=== PATIENT | female | born 1990 | race Caucasian/White ===

== ENCOUNTER 2017-06-17 00:41 | Inpatient (IN) | payer MEDICAID ==
[2017-06-17] MEDS ORDERED: Acetaminophen 500 MG Tab PO ONE (00:57)
[2017-06-17] MEDS ORDERED: Lactated Ringers 1,000 ML IV ONE (00:59)
[2017-06-17] MEDS: Sodium Chloride 0.9% 10 ML Syringe FLUSH PRN ×2 (01:11→01:12)
--- NOTE | 2017-06-17 01:13 | EDM.PDOC ---
ED HPI GENERAL MEDICAL PROBLEM - General Chief Complaint: Fever Stated Complaint: BODY SHAKING Time Seen by Provider: 06/17/17 00:55 Source of Information: Reports: Patient History Limitations: Reports: No Limitations - History of Present Illness INITIAL COMMENTS - FREE TEXT/NARRATIVE: 26 yo female presents with a high fever via EMS. Has been ill since Friday. Had a last week in [place]. Just thought she had the flu initially. Took some ibuprofen earlier for her fever. Has no abdominal pain. Onset: Gradual Onset Date: 06/14/17 Duration: Day(s):, Getting Worse Location: Reports: Generalized Quality: Reports: Other (no pain.) Severity: Severe Improves with: Reports: Medication (ibuprofen seemed to be helping.) Worsens with: Reports: Other (time) Context: Reports: Other (Recent ) Associated Symptoms: Reports: Cough, Fever/Chills Treatments ACCESS DEVELOPER: Reports: NSAIDS Lower Abdomen Pain Score (Numeric/FACES): 10 - Related Data Allergies Allergy/AdvReac Type Severity Reaction Status Date / Time penicillin V Allergy Swelling Verified 06/17/17 01:03 Home Meds: Home Meds Ibuprofen [Motrin] 600 mg PO Q6H PRN 06/17/17 [History] Past Medical History Other HEENT History: eyelid surgery as a baby Cardiovascular History: Reports: Heart Murmur 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: , Other (See Below) Other OB/BYN History: ovarian cystectomy left Musculoskeletal History: Reports: Arthritis, Other (See Below) Other Musculoskeletal History: 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 Neurological History: Reports: Migraines Psychiatric History: Reports: ADHD, Addiction - Infectious Disease History Infectious Disease History: Reports: Chicken Pox - Past Surgical History HEENT Surgical History: Reports: Eye Surgery, Oral Surgery Respiratory Surgical History: Reports: None GI Surgical History: Reports: Appendectomy Social & Family History - Family History Family Medical History: Noncontributory Endocrine/Metabolic: Reports: Diabetes, type II - Tobacco Use Smoking Status *Q: Current Every Day Smoker Years of Tobacco use: 8 Packs/Tins Daily: 1 Used Tobacco, but Quit: No Second Hand Smoke Exposure: Yes - Caffeine Use Caffeine Use: Reports: Soda Other Caffeine Use: occas - Recreational Drug Use Recreational Drug Use: Yes Drug Use in Last 12 Months: No Recreational Drug Type: Reports: Methamphetamine Recreational Drug Use Frequency: Not Used In Over 6 Months ED ROS GENERAL - Review of Systems Review Of Systems: See Below Constitutional: Reports: Fever, Chills HEENT: Reports: No Symptoms Respiratory: Reports: Cough. Denies: Shortness of Breath, Sputum Cardiovascular: Reports: No Symptoms Endocrine: Reports: No Symptoms GI/Abdominal: Reports: No Symptoms : Reports: No Symptoms Musculoskeletal: Reports: No Symptoms Skin: Reports: No Symptoms, Other (No breast redness.) Neurological: Reports: Headache Psychiatric: Reports: No Symptoms ED EXAM, SEPSIS - Physical Exam Exam: See Below Exam Limited By: No Limitations General Appearance: Alert, WD/WN, No Apparent Distress Eye Exam: Bilateral Eye: Normal Inspection Ears: Normal External Exam, Normal Canal, Hearing Grossly Normal, Normal TMs Nose: Normal Inspection, Normal Mucosa, No Blood Throat/Mouth: Normal Inspection, Normal Lips, Normal Teeth, Normal Oropharynx, Normal Voice, No Airway Compromise Head: Atraumatic, Normocephalic Neck: Normal Inspection, Supple, Non-Tender, Full Range of Motion Respiratory/Chest: No Respiratory Distress, Lungs Clear, Normal Breath Sounds, No Accessory Muscle Use Cardiovascular: Regular Rate, Rhythm, No Edema GI/Abdominal: Normal Bowel Sounds, Soft, Non-Tender, No Distention, Other (C- section scar is not red.) Back: Normal Inspection. No: CVA Tenderness (R), CVA Tenderness (L) Extremities: Normal Inspection, Normal Range of Motion, Non-Tender, No Pedal Edema Neurological: Alert, Oriented, CN II-XII Intact, Normal Cognition, No Motor/ Sensory Deficits Psychiatric: Normal Affect, Normal Mood Skin: Warm, Dry, Intact, Normal Color, No Rash, Other (Breasts not red.) Lymphatic: Bilateral: No Adenopathy Course - Vital Signs Text/Narrative:: LR 1000 ml IV, acetaminophen 1000 mg po, NS 1000 ml IV, Rocephin 1 gm IV Orthostats-positive Last Recorded V/S: Last Vital Signs Temp 39.1 C H 06/17/17 02:49 Pulse 135 H 06/17/17 01:00 Resp 32 H 06/17/17 01:00 BP 87/73 L 06/17/17 01:00 Pulse Ox 100 06/17/17 01:00 - Orders/Labs/Meds Orders: Active Orders 24 hr Category Date Time Status Orthostatic Vital Signs [RC] ASDIRECTED Care 06/17/17 03:29 Active CULTURE BLOOD [BC] Stat Lab 06/17/17 01:05 Received CULTURE BLOOD [BC] Urgent Lab 06/17/17 01:15 Received CULTURE URINE [RM] Stat Lab 06/17/17 01:52 Ordered Sodium Chloride 0.9% [Saline Flush] Med 06/17/17 01:11 Active 10 ml FLUSH ASDIRECTED PRN Blood Culture x2 Reflex Set [OM.PC] Urgent Oth 06/17/17 00:58 Ordered Saline Lock Insert [OM.PC] Routine Oth 06/17/17 01:11 Ordered Medication Orders Sodium Chloride (Saline Flush) 10 ml FLUSH ASDIRECTED PRN PRN Reason: Keep Vein Open Last Admin: 06/17/17 01:12 Dose: 10 ml Admin: 06/17/17 01:11 Dose: 10 ml Labs: Laboratory Tests 06/17/17 06/17/17 06/17/17 Range/Units 01:05 01:05 01:05 WBC 12.9 H (4.5-12.0) X10-3/uL RBC 4.32 (3.23-5.20) x10(6)uL Hgb 10.2 L (11.5-15.5) g/dL Hct 31.8 (30.0-51.3) % MCV 73.5 L (80-96) fL MCH 23.6 L (27.7-33.6) pg MCHC 32.1 L (32.2-35.4) g/dL RDW 22.3 H (11.5-15.5) % Plt Count 476 H (125-369) X10(3)uL Sodium 136 (135-145) mmol/L Potassium 3.7 (3.5-5.3) mmol/L Chloride 107 (100-110) mmol/L Carbon Dioxide 19 L (23-29) mmol/L BUN 15 D (5-20) mg/dL Creatinine 0.7 (0.6-1.3) mg/dL Est Cr Clr Drug Dosing 109.59 mL/min Estimated GFR (MDRD) > 60 (>60) BUN/Creatinine Ratio 21.4 H (9-20) Glucose 105 (80-116) mg/dL Lactic Acid 1.8 (0.5-2.2) mmol/L Calcium 8.4 L (8.6-10.2) mg/dL Urine Color (YELLOW) Urine Appearance (CLEAR) Urine pH (5.0-6.5) Ur Specific [place] (1.010-1.025) Urine Protein (NEGATIVE) mg/dL Urine Glucose (UA) (NEGATIVE) mg/dL Urine Ketones (NEGATIVE) mg/dL Urine Occult Blood (NEGATIVE) Urine Nitrite (NEGATIVE) Urine Bilirubin (NEGATIVE) Urine Urobilinogen (NEGATIVE) mg/dL Ur Leukocyte Esterase (NEGATIVE) Urine RBC (0) Urine WBC (0) Ur Squamous Epith Cells (NS,R,O) Urine Bacteria (NS) Urine Yeast (NS) Urine Opiates Screen (NEGATIVE) Ur Oxycodone Screen (NEGATIVE) Ur Propoxyphene Screen (NEGATIVE) Ur Barbituates Screen (NEGATIVE) Ur Tricyclics Screen (NEGATIVE) Ur Phencyclidine Scrn (NEGATIVE) Ur Amphetamine Screen (NEGATIVE) Urine MDMA Screen (NEGATIVE) U Benzodiazepines Scrn (NEGATIVE) U Cocaine Metab Screen (NEGATIVE) U Marijuana (THC) Screen (NEGATIVE) 06/17/17 06/17/17 Range/Units 01:35 01:35 WBC (4.5-12.0) X10-3/uL RBC (3.23-5.20) x10(6)uL Hgb (11.5-15.5) g/dL Hct (30.0-51.3) % MCV (80-96) fL MCH (27.7-33.6) pg MCHC (32.2-35.4) g/dL RDW (11.5-15.5) % Plt Count (125-369) X10(3)uL Sodium (135-145) mmol/L Potassium (3.5-5.3) mmol/L Chloride (100-110) mmol/L Carbon Dioxide (23-29) mmol/L BUN (5-20) mg/dL Creatinine (0.6-1.3) mg/dL Est Cr Clr Drug Dosing mL/min Estimated GFR (MDRD) (>60) BUN/Creatinine Ratio (9-20) Glucose (80-116) mg/dL Lactic Acid (0.5-2.2) mmol/L Calcium (8.6-10.2) mg/dL Urine Color [place] (YELLOW) Urine Appearance Cloudy (CLEAR) Urine pH 5.0 (5.0-6.5) Ur Specific [place] 1.020 (1.010-1.025) Urine Protein 100 H (NEGATIVE) mg/dL Urine Glucose (UA) Normal (NEGATIVE) mg/dL Urine Ketones Negative (NEGATIVE) mg/dL Urine Occult Blood Large H (NEGATIVE) Urine Nitrite Negative (NEGATIVE) Urine Bilirubin Negative (NEGATIVE) Urine Urobilinogen 1 H (NEGATIVE) mg/dL Ur Leukocyte Esterase Large H (NEGATIVE) Urine RBC 10-20 H (0) Urine WBC 30-40 H (0) Ur Squamous Epith Cells Few H (NS,R,O) Urine Bacteria Moderate H (NS) Urine Yeast Few H (NS) Urine Opiates Screen Negative (NEGATIVE) Ur Oxycodone Screen Positive H (NEGATIVE) Ur Propoxyphene Screen Negative (NEGATIVE) Ur Barbituates Screen Negative (NEGATIVE) Ur Tricyclics Screen Negative (NEGATIVE) Ur Phencyclidine Scrn Negative (NEGATIVE) Ur Amphetamine Screen Negative (NEGATIVE) Urine MDMA Screen Negative (NEGATIVE) U Benzodiazepines Scrn Negative (NEGATIVE) U Cocaine Metab Screen Negative (NEGATIVE) U Marijuana (THC) Screen Negative (NEGATIVE) Meds: Medications Generic Name Dose Route Start Last Admin Trade Name Freq PRN Reason Stop Dose Admin Sodium Chloride 10 ml 06/17/17 01:11 06/17/17 01:12 Saline Flush FLUSH 10 ml ASDIRECTED PRN Administration Keep Vein Open Discontinued Medications Generic Name Dose Route Start Last Admin Trade Name Freq PRN Reason Stop Dose Admin Acetaminophen 1,000 mg 06/17/17 00:57 06/17/17 01:06 Tylenol Extra Strength PO 06/17/17 00:58 1,000 mg ONETIME ONE Administration Lactated Ringer's 1,000 mls @ 1,000 mls/hr 06/17/17 00:59 06/17/17 01:08 Ringers, Lactated IV 06/17/17 01:58 1,000 mls/hr BOLUS ONE Administration Sodium Chloride 1,000 mls @ 1,000 mls/hr 06/17/17 01:46 06/17/17 02:11 Normal Saline IV 06/17/17 02:45 1,000 mls/hr .BOLUS ONE Administration Ceftriaxone Sodium 1,000 mg/ 50 mls @ 100 mls/hr 06/17/17 01:54 06/17/17 02: 13 Sodium Chloride IV 06/17/17 02:23 100 mls/hr ONETIME ONE Administration Departure - Departure Time of Disposition: 03:35 Disposition: Refer to Observation Condition: Fair Clinical Impression: Orthostatic hypotension UTI (urinary tract infection) Qualifiers: Urinary tract infection type: acute pyelonephritis Qualified Code(s): N10 - Acute pyelonephritis Clinical Impression: (Ruled Out): Fever - Discharge Information - My Orders Last 24 Hours: My Active Orders 06/17/17 00:58 Blood Culture x2 Reflex Set [OM.PC] Urgent 06/17/17 01:05 CULTURE BLOOD [BC] Stat 06/17/17 01:11 Sodium Chloride 0.9% [Saline Flush] 10 ml FLUSH ASDIRECTED PRN Saline Lock Insert [OM.PC] Routine 06/17/17 01:15 CULTURE BLOOD [BC] Urgent 06/17/17 01:52 CULTURE URINE [RM] Stat 06/17/17 03:29 Orthostatic Vital Signs [RC] ASDIRECTED - Assessment/Plan Last 24 Hours: My Active Orders 06/17/17 00:58 Blood Culture x2 Reflex Set [OM.PC] Urgent 06/17/17 01:05 CULTURE BLOOD [BC] Stat 06/17/17 01:11 Sodium Chloride 0.9% [Saline Flush] 10 ml FLUSH ASDIRECTED PRN Saline Lock Insert [OM.PC] Routine 06/17/17 01:15 CULTURE BLOOD [BC] Urgent 06/17/17 01:52 CULTURE URINE [RM] Stat 06/17/17 03:29 Orthostatic Vital Signs [RC] ASDIRECTED
[2017-06-17] MEDS ORDERED: Sodium Chloride 0.9% 1,000 ML IV ONE (01:46)
[2017-06-17] MEDS ORDERED: cefTRIAXone 1,000 MG in Sodium Chloride 0.9% 50 ML IV ONE (01:54)
[2017-06-17] MEDS ORDERED: Ondansetron 4 MG Tab.DIS PO PRN (03:37)
[2017-06-17] MEDS ORDERED: Docusate Sodium 100 MG Cap PO PRN (03:37)
[2017-06-17] MEDS: Sodium Chloride 0.9% 1,000 ML IV SCH ×3 (04:25→20:41)
[2017-06-17] MEDS: Acetaminophen 325 MG Tab PO PRN ×2 (06:05→12:53)
--- NOTE | 2017-06-17 08:48 | PCM.HP ---
H&P History of Present Illness - General Date of Service: 06/17/17 Admit Problem/Dx: Admission Diagnosis/Problem Admission Diagnosis/Problem Urinary tract infection Source of Information: Patient, Old Records - History of Present Illness Initial Comments - Free Text/Narative: 26-year-old female came in for fever generally less weakness and dizziness yesterday. Symptoms started yesterday, been well previously she had a on the 8th for non-reassuring status. She developed pain in the left lower quadrant yesterday which complains is,sharp, about 5 out of 10 with no radiation.Percocet helps. She has no urinary symptoms but has a mild cough. Her fever is temperature was 3 yesterday when she came. She has a history of heart murmur, but has otherwise been healthy and was an OB patient of [facility] until she can out of town last week. 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: , Other (See Below) Other OB/BYN History: ovarian cystectomy left Musculoskeletal History: Reports: Arthritis, Other (See Below) Other Musculoskeletal History: 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 Neurological History: Reports: Migraines Psychiatric History: Reports: ADHD, Addiction - Infectious Disease History Infectious Disease History: Reports: Chicken Pox - Past Surgical History HEENT Surgical History: Reports: Eye Surgery, Oral Surgery Respiratory Surgical History: Reports: None GI Surgical History: Reports: Appendectomy Social & Family History - Family History Family Medical History: Noncontributory Endocrine/Metabolic: Reports: Diabetes, type II - Tobacco Use Smoking Status *Q: Current Every Day Smoker Years of Tobacco use: 10 Packs/Tins Daily: 0.5 Used Tobacco, but Quit: No Second Hand Smoke Exposure: Yes - Caffeine Use Caffeine Use: Reports: Soda Other Caffeine Use: occas - Recreational Drug Use Recreational Drug Use: No Drug Use in Last 12 Months: No Recreational Drug Type: Reports: Methamphetamine Recreational Drug Use Frequency: Not Used In Over 6 Months H&P Review of Systems - Review of Systems: Review Of Systems: ROS reveals no pertinent complaints other than HPI. Exam - Exam Exam: See Below - Vital Signs Vital Signs: Last Vital Signs Temp 98.6 F 06/17/17 03:37 Pulse 98 06/17/17 03:37 Resp 18 06/17/17 03:37 BP 114/70 06/17/17 03:37 Pulse Ox 95 06/17/17 03:37 Weight: 66.814 kg - Exam General: Alert, Oriented, 4 HEENT: PERRLA, Hearing Intact, Mucosa Moist & [place], Nares Patent, Normal Nasal Septum, Posterior Pharynx Clear, Conjunctiva Clear, EOMI, EACs Clear, TMs Clear Neck: Supple, Trachea Midline, 2 Lungs: Clear to Auscultation, Normal Respiratory Effort Cardiovascular: Systolic Murmur Abdomen: Soft, Pelvis Stable, Tenderness (LLQ), Other (Wound is dry,intact) (Female) Exam: Deferred. No: Vaginal Discharge Rectal (Female) Exam: Deferred Back Exam: Normal Inspection, Full Range of Motion, NT Extremities: 3, Normal Inspection, 10 Skin: Warm, Dry, Intact Neurological: Cranial Nerves Intact, Reflexes Equal Bilateral Neuro Extensive - Mental Status: Alert, Oriented x3, Normal Mood/Affect, Normal Cognition Neuro Extensive - Motor, Sensory, Reflexes: CN II-XII Intact, Normal Gait, Normal Reflexes Psychiatric: Alert, Normal Affect, Normal Mood - Patient Data Lab Results Last 24 hrs: Laboratory Results - last 24 hr 06/17/17 Range/Units 05:55 WBC 20.4 H (4.5-12.0) X10-3/uL RBC 4.09 (3.23-5.20) x10(6)uL Hgb 9.5 L (11.5-15.5) g/dL Hct 30.2 (30.0-51.3) % MCV 73.8 L (80-96) fL MCH 23.3 L (27.7-33.6) pg MCHC 31.5 L (32.2-35.4) g/dL RDW 22.4 H (11.5-15.5) % Plt Count 449 H (125-369) X10(3)uL Result Diagrams: 06/17/17 05:55 06/17/17 01:05 *Q Meaningful Use (ADM) - VTE *Q VTE Criteria *Q: - Stroke *Q Stroke Criteria *Q: - AMI *Q AMI Criteria *Q: - Problem List (1) S/P section SNOMED Code(s): 758148099, 501287461 ICD Code: Z98.891 - HISTORY OF UTERINE SCAR FROM PREVIOUS SURGERY Status: Acute Current Visit: Yes (2) LLQ abdominal pain SNOMED Code(s): 698234911 ICD Code: R10.32 - LEFT LOWER QUADRANT PAIN Status: Acute Current Visit: Yes (3) Anemia affecting SNOMED Code(s): 74875210 ICD Code: O99.019 - ANEMIA COMPLICATING , UNSPECIFIED TRIMESTER Status: Acute Current Visit: No Problem Details: Also secondary to blood loss Stable hgb-will start FERROUS supplementation (4) UTI (urinary tract infection) SNOMED Code(s): 90363761 ICD Code: N39.0 - URINARY TRACT INFECTION, SITE NOT SPECIFIED Status: Acute Current Visit: Yes Qualifiers: Urinary tract infection type: acute pyelonephritis Qualified Code(s): N10 - Acute pyelonephritis Problem List Initiated/Reviewed/Updated: Yes Orders Last 24hrs: Active Orders 24 hr Category Date Time Status Sodium Chloride 0.9% [Normal Saline] 1,000 ml Med 06/17/17 03:45 Active IV ASDIRECTED Medication Orders Acetaminophen (Tylenol) 650 mg PO Q4H PRN PRN Reason: Pain (Mild 1-3)/fever Last Admin: 06/17/17 06:05 Dose: 650 mg Docusate Sodium (Colace) 100 mg PO BID PRN PRN Reason: Constipation Sodium Chloride (Normal Saline) 1,000 mls @ 150 mls/hr IV ASDIRECTED JASMINA Last Admin: 06/17/17 04:25 Dose: 150 mls/hr Ibuprofen (Motrin) 400 mg PO Q6H PRN PRN Reason: Pain (mild 1-3) Ondansetron HCl (Zofran Odt) 4 mg PO Q6H PRN PRN Reason: nausea, able to take PO Sodium Chloride (Saline Flush) 10 ml FLUSH ASDIRECTED PRN PRN Reason: Keep Vein Open Last Admin: 06/17/17 01:12 Dose: 10 ml Admin: 06/17/17 01:11 Dose: 10 ml Assessment/Plan Comment:: Because of the fever still unclear but it is possible his from the urinary tract. The cause of the left lower quadrant abdominal pain is also not clear. I will go ahead and get an ultrasound. I'm starting Levaquin 500 mg daily. And also get a chest x-ray,repeat a CBC and basic profile in the morning.We'll continue with pain control and discontinue telemetry. I have asked for the previous record specifically a delivery at [facility],sent to us so we can review it.
[2017-06-17] MEDS: Levofloxacin/Dextrose 5%-Water 500 MG in Premix Bag 1 BAG IV SCH (11:44)
[2017-06-17] MEDS ORDERED: Ketorolac 30 MG/ML SDV IVPUSH PRN (17:13)
[2017-06-17] MEDS ORDERED: metroNIDAZOLE/Normal Saline 100 ML ONE (18:40)
[2017-06-17] MEDS: metroNIDAZOLE/Normal Saline 500 MG in Premix Bag 1 BAG IV SCH (18:43)
[2017-06-18] MEDS: metroNIDAZOLE/Normal Saline 500 MG in Premix Bag 1 BAG IV SCH ×3 (03:02→17:36)
[2017-06-18] MEDS: Sodium Chloride 0.9% 1,000 ML IV SCH ×2 (05:19→14:03)
[2017-06-18] MEDS: Ibuprofen 400 MG Tab PO PRN (07:56)
[2017-06-18] MEDS: Levofloxacin/Dextrose 5%-Water 500 MG in Premix Bag 1 BAG IV SCH (10:26)
[2017-06-18] MEDS ORDERED: Iopamidol 755 Mg/ML 100 ML Bottle IV SCH (15:00)
[2017-06-19] MEDS: metroNIDAZOLE/Normal Saline 500 MG in Premix Bag 1 BAG IV SCH ×2 (01:31→08:44)
[2017-06-19] MEDS: Ibuprofen 400 MG Tab PO PRN (08:44)
[2017-06-19] MEDS: Sodium Chloride 0.9% 10 ML Syringe FLUSH PRN (08:44)
[2017-06-19 08:55] VITALS: BP 115/77
--- NOTE | 2017-06-19 09:54 | PN ---
DATE SEEN: 06/18/2017 CHIEF COMPLAINT: 1. Headache. 2. Abdominal pain. HISTORY OF PRESENT ILLNESS: A 26-year-old female, admitted 2 days ago with pelvic pain, possible UTI, possible endometritis. She still has minimal pain left lower quadrant, mild headache, but overall seems better than she was. No more fever. REVIEW OF SYSTEMS: No chest pain. No shortness of breath. No leg swelling. No lochia or foul smelling discharge vaginally. ALLERGIES: Penicillin. PHYSICAL EXAMINATION: GENERAL: She is not in distress. Blood pressure is normal. She is afebrile. ABDOMEN: Soft and nontender. The incision is intact. CARDIOVASCULAR: Normal. RESPIRATIONS: Clear. ENT: Negative. EYES: EPI. LABS: Normal white cell count. IMPRESSION: 1. Left lower quadrant abdominal pain. 2. Urinary tract infection. 3. Headache, possibly spinal. PLAN: I ordered a CT scan based on the ultrasound from yesterday. Regarding the CT-scan, I spoke with the radiologist who thought there could be a dehiscence of the scar and possibly endometritis. I called [place], spoke to Gynecology, I attempted [place], but was not able to get the surgeon who did the . The patient is clinically improving, including white cell count and pain, and I am not sure if there is anything more we could do. Continue at this time with [facility], but will be waiting for the telephone call from Gynecology in [place] once they review the images. /[id number] JARRED/SONY
--- NOTE | 2017-06-19 09:55 | PN ---
DATE SEEN: 06/19/2017 REASON FOR VISIT: Abdominal pain. HISTORY OF PRESENT ILLNESS: This is a 26-year-old female, who came in with left lower quadrant abdominal pain. Overnight, she feels better, has no more pain. Denies any headache. No fever. No vaginal drainage or discharge. REVIEW OF SYSTEMS: All other systems negative. SOCIAL HISTORY: Smoker. PHYSICAL EXAMINATION: VITAL SIGNS: Blood pressure is normal. She is afebrile. ENT: Negative. HEAD: Normal size. NECK: Supple. CHEST: Clear. ABDOMEN: Soft and benign. SKIN: Incision is intact. LABORATORY DATA: No growth in the blood draw and urine culture is unremarkable, mixed susanna. CT report, please see the electronic record. IMPRESSION: 1. Left lower quadrant abdominal pain. 2. Urinary tract infection. 3. Suspected endometritis. PLAN: Discharge home today. No more antibiotics. The patient is clinically better. I advised to follow up next week with myself on Friday. /[id number] JARRED/SONY
[2017-06-19] MEDS: Levofloxacin/Dextrose 5%-Water 500 MG in Premix Bag 1 BAG IV SCH (10:25)
--- NOTE | 2017-06-20 08:10 | DISCH ---
DISCHARGE DATE: 06/19/2017 REASON FOR ADMISSION: 1. Urinary tract infection. 2. Anemia. 3. Left lower quadrant abdominal pain. 4. Status post section. CONSULTATIONS: [employer], [place]. PROCEDURES: Ultrasound, CT scan of abdomen and pelvis. BRIEF HISTORY: A 26-year-old female came in because of abdominal pain, fever and headache, had urine that was dirty, treated initially with Rocephin and then Levaquin and Flagyl. Her symptoms improved. An ultrasound initially suspected possible abscess, but a CT report did not show any significant abscess but suspicion of endometritis was entertained. I spoke with the Coffee Roaster Helper Dr. North at [facility] and after review of the CT scan and the clinical findings of the patient suggested that we could discharge the patient home. She was almost 100% better. Her headache was gone, fever was gone, white cell count was 7 and abdominal exam was benign. I discharged her home on her current home medications with no antibiotics with a plan for followup on Friday or Friday. /[id number] JARRED/SONY
--- NOTE | 2017-06-24 11:29 | CR ---
INDICATION: Cough. CHEST, PA AND LATERAL: No infiltrates, effusions, or masses. The heart and mediastinal structures are normal. Nothing to suggest acute or significant chronic pathology. MTDD
== END 2017-06-19 13:27 | disposition home or self-care (01) | DRG 776 ==
LOC: FB.ED 00:41 → FB.MS 03:37 → OBSVTOIN 17:13
PROVIDERS: ADMIT Emergency Medicine; ATTEND Family Medicine
DX: O86.20 Urinary tract infection following delivery, unspecified (principal); R10.32 Left lower quadrant pain; F17.210 Nicotine dependence, cigarettes, uncomplicated; O99.03 Anemia complicating the puerperium; D64.9 Anemia, unspecified; R51 Headache
CPT/HCPCS: 36415; 71020; 74177; 76856; 80048; 80305; 81001; 83605; 85025; 85027; 87040; 87086; 96361; 96365; 99285; A9270-GY; J0696; J1885; J1956; J7040; J7050; J7120; Q9967

== ENCOUNTER 2017-07-17 06:41 | Emergency (ER) | payer MEDICAID ==
[2017-07-17 07:21] VITALS: BP 113/61
[2017-07-17] MEDS ORDERED: diphenhydrAMINE 50 MG/ML SDV IVPUSH ONE (07:36)
[2017-07-17] MEDS ORDERED: Ketorolac 30 MG/ML SDV IVPUSH ONE (07:36)
[2017-07-17] MEDS ORDERED: Sodium Chloride 0.9% 1,000 ML IV SCH (07:45)
[2017-07-17] MEDS ORDERED: Iopamidol 755 Mg/ML 100 ML Bottle IV ONE (08:14)
[2017-07-17] MEDS ORDERED: HYDROmorphone 2 MG/ML SDV IVPUSH ONE (09:34)
[2017-07-17] MEDS ORDERED: Ondansetron 4 MG/2 ML SDV IVPUSH ONE (09:35)
--- NOTE | 2017-07-17 12:44 | US ---
INDICATION: One month post , pain increased, extending to right, suggestion of enlarged ovary on CT scan of the same date. PELVIC ULTRASOUND, NON-OB, LIMITED: Multiple ultrasonic images were obtained with transabdominal probe and revealed the uterus to measure 11.5 x 4 x 7 cm. The large bulky uterus is likely on the basis of recent one month ago. No definite uterine mass is identified. Free fluid is noted in the pelvis, which may be physiologic, but should be correlated clinically and may be on the basis of the previous or an inflammatory process, such as peritonitis. This should be correlated clinically. The ovaries appear grossly normal with follicles but are not well seen, especially the left. Endovaginal probe ultrasound will be necessary for further evaluation. No adnexal mass lesions were identified. IMPRESSION: 1. Free fluid of questionable etiology. Cannot exclude peritonitis. The possibility of physiologic cyst fluid would be a lesser consideration. 2. Large bulky uterus compatible with recent gestation. 3. Ovaries not ideally visualized, need endovaginal probe for further evaluation. INDICATION: One month post , pain increased, extending to right, suggestion of enlarged ovary on CT scan of the same date - need better visualization of the ovaries than was possible with the transabdominal probe. TRANSVAGINAL PELVIC ULTRASOUND: Utilizing transvaginal probe, multiple ultrasonic images revealed the endometrial cavity echo to be normal for at approximately 5.8 mm. The uterus also appeared normal for . Free fluid is noted of questionable etiology, cannot exclude peritonitis versus physiologic cyst fluid. It does appear to be simple fluid, however. The ovaries appear to be normal, measuring approximately 4.4 x 3.7 x 1.7 cm on the right and 4.3 x 4.1 x 1.2 cm on the left with follicles present. Fluid is present around the right ovary more prominently than on the left, but there is fluid at the left ovary also noted. No adnexal mass lesions were identified. IMPRESSION: Essentially normal pelvic ultrasound; however, fluid in the pelvis may be of concern, and followup studies and clinically correlation are recommended. MTDD
[2017-07-17] MEDS ORDERED: cefTRIAXone 250 MG Vial IM ONE (12:47)
[2017-07-17] MEDS ORDERED: Azithromycin 500 MG Tab PO ONE (12:48)
--- NOTE | 2017-07-18 09:09 | ER ---
DATE SEEN: 07/17/2017 This 26-year-old 5, para 5-0-0-5, who comes in because she has lower abdominal discomfort and severe abdominal pain greater than 10/10 last night. She is status post June 07 with complication postoperatively, which today, on the basis of the examination, seems to be endomyometritis. On 06/18/2017 to 06/19/2017, she was treated and hospitalized for possible pyelonephritis and no growth noted on the blood cultures and UC read as negative with contamination. She had stayed overnight and felt better the following day on 06/19/2017. She was sent home on antibiotics. The patient to follow up in a week. She had a pelvic ultrasound performed and also abdominal CT performed 06/18 and 06/17, and uterus is enlarged consistent with state. There is some fluid in endocervical canal. There is some concern postop abscess in right lower quadrant. No CT was performed to verify status of possible abscess (hypoechoic mass). Dr. Sanches discussed with Dr. North at [facility]. Discharged on Levaquin and Flagyl. She denies vomiting or fever. Denies diarrhea, constipation, blood in her stool, black tarry stool, frequency, urgency, dysuria nor she does have vaginal discharge. No previous STD studies have been performed. REVIEW OF SYSTEMS: HEENT: Negative. She has had poor dentition. CARDIORESPIRATORY: Negative. No shortness of breath or cough. No tenderness of lower extremities. GASTROINTESTINAL: As noted above without diarrhea. She has had run out of her pain medicine yesterday. She has slight nausea, pain has increased, and vomited once last night. GENITOURINARY: Notes it hurts to pass urine but she denies dysuria. SOCIAL HISTORY: Smokes half a pack per day. Denies alcohol or drug use. Three children live with her father and 2 children live in foster care. This is Suggestive of moderate dysfunctional social skills. PHYSICAL EXAMINATION: VITAL SIGNS: Blood pressure 113/61, heart rate 79, respirations 18, oxygen saturation 98%, and temperature is 36.9 degrees centigrade. GENERAL: The patient has mild discomfort, is not overweight. She is accompanied by another male, who is markedly overweight, significant other. HEENT: PERRLA intact. Pharynx without abnormality. Mucosa slightly dry. No cervical adenopathy. No thyromegaly. LUNGS: Clear to auscultation without rales, rhonchi, or wheezes. HEART: S1, S2. No murmur. ABDOMEN: Soft. No guarding. No abdominal discomfort. DIAGNOSTIC STUDIES: In left abdomen, there is mild stool in the colon, mild dilation of right renal pelvis, and right internal collecting systems possibly related to previously obstructive minimally prominent system. Mild soft tissue stranding, fluid in the pelvis anteriorly and posteriorly. New low density prominence right adnexal region, prominence right ovary oval shaped lesion, right ovary. This is considered to be 5.7 cm. Mild inflammatory or edematous stranding anterior lower pelvic wall with fairly stable consistent with prior C- section, increased number of small mildly prominent lower pelvis, external iliac, and pelvic sidewall lymph nodes. There is concern about presence of tampon in the vagina. Pelvic exam was performed. No evidence for tampon was noted. Also ultrasound performed this morning after the CT was completed and demonstrated free fluid, the etiology cannot exclude peritonitis, possible physiological cyst could be consideration but there is no evidence for mass in the right ovary. Large bulky uterus is compatible with recent gestation but is probably larger than anticipated. Ovaries not ideally visualized. Transvaginal ultrasound: Ovaries appear normal 4.4 x 3.7 x 1.7 on the right and 4.3 x 4.1 x 1.2 on the left with follicles present. Fluid around the ovaries more prominent in the left, but there is also fluid in left ovary. There are no adnexal masses. Normal pelvic ultrasound. Noted the uterus is still 9 x 10 cm, compared to the 10-day ultrasound of 9 x 12 cm. By now, I would expect the uterus to be involuted to 6-9 cm size. Status of the patient was discussed with Dr. Harmon, Infectious Disease at [facility] with ongoing abdominal discomfort, etiology indeterminate of the patient's anterior abdominal wall and/or pelvic fluid. Perhaps this reflects a smoldering endomyometritis. The patient will be following up with doctor in a week. No antibiotics given. She has 12 tablets of Vicodin given for pain and also will be following with Dr. Harmon, [facility], telephone number was given to the patient. While smoldering endomyometritis is present and slow involution of uterus size, It is possible the baseline of a large uterus of multigravida (G5, P5005) uterus may be the cause for enlarged uterus. The patient maybe just needs more time for involution of her uterus and resolution of symptoms. The patient was seen on arrival at 0600 hours, and she has had a lengthy stay in the Emergency Department with increased time to complete pelvic exam, CT scan, ultrasound study, and receive final radiology reports. Complete discussion with Infectious Disease, Dr. Harmon and arrange for ID consultation nd followup. DIAGNOSIS: Sexually transmitted disease, confirmed gonorrhea. She wass treated empirically with IM [id number] mg and 1 gm azithromycin /[id number] LONG/SONY cc: Copy faxed to Dr. Harmon, Infectious Disease [facility]
== END 2017-07-17 14:20 | disposition home or self-care (01) ==
LOC: FB.ED 06:41
DX: A54.9 Gonococcal infection, unspecified (principal); F17.210 Nicotine dependence, cigarettes, uncomplicated
CPT/HCPCS: 36415; 74177; 76830; 76857; 80053; 80305; 81001; 81025; 83605; 85025; 87210; 87491; 87591; 96361; 96372; 96374; 96375; 99284; A9270; J0696; J1170; J1200; J1885; J2405; J7040; Q9967

== ENCOUNTER 2017-07-19 22:38 | Emergency (ER) | payer MEDICAID | END 2017-07-19 22:40 | disposition home or self-care (01) | LOC: FB.EDOUT 22:38 | DX: Z53.21 Procedure and treatment not carried out due to patient leaving prior to being seen by health care provider (principal) ==

== ENCOUNTER 2017-07-26 20:17 | Emergency (ER) | payer MEDICAID ==
[2017-07-26] MEDS ORDERED: Ibuprofen 600 MG Tab PO ONE (20:33)
[2017-07-26 20:34] VITALS: BP 112/70
--- NOTE | 2017-07-26 20:35 | EDM.PDOC ---
ED HPI GENERAL MEDICAL PROBLEM - General Stated Complaint: TOOTHACHE Time Seen by Provider: 07/26/17 20:25 Source of Information: Reports: Patient History Limitations: Reports: No Limitations - History of Present Illness INITIAL COMMENTS - FREE TEXT/NARRATIVE: 26 y.o.w.f -smoker-come to the ed because of toothache for several weeks. Pt was on clindamycin 1 week ago without improvement. No trauma to teeth. Pt did not find a dentist. Pt denies any other acute medical issues. Onset: Gradual, Unknown/Unsure Onset Date: 07/17/17 Onset Time: 09:00 Duration: Intermittent Location: Reports: Face Quality: Reports: Ache, Burning, Same as Previous Episode Severity: Mild Improves with: Reports: Heat Therapy Worsens with: Reports: Cold Therapy Associated Symptoms: Reports: No Other Symptoms Bilateral Tooth/Teeth Pain Score (Numeric/FACES): 10 - Related Data Allergies Allergy/AdvReac Type Severity Reaction Status Date / Time penicillin V Allergy Swelling Verified 07/26/17 20:41 Home Meds: Home Meds Ibuprofen [Motrin] 600 mg PO Q6H PRN 06/17/17 [History] Past Medical History Other HEENT History: eyelid surgery as a baby Cardiovascular History: Reports: Heart Murmur 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: , Other (See Below) Other OB/BYN History: ovarian cystectomy left Musculoskeletal History: Reports: Arthritis, Other (See Below) Other Musculoskeletal History: 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 Neurological History: Reports: Migraines Psychiatric History: Reports: ADHD, Addiction - Infectious Disease History Infectious Disease History: Reports: Chicken Pox - Past Surgical History HEENT Surgical History: Reports: Eye Surgery, Oral Surgery Respiratory Surgical History: Reports: None GI Surgical History: Reports: Appendectomy Social & Family History - Family History Family Medical History: Noncontributory Endocrine/Metabolic: Reports: Diabetes, type II - Tobacco Use Smoking Status *Q: Current Every Day Smoker Years of Tobacco use: 10 Packs/Tins Daily: 1 Used Tobacco, but Quit: No Second Hand Smoke Exposure: Yes - Caffeine Use Caffeine Use: Reports: Coffee, Energy Drinks, Soda Other Caffeine Use: occas - Recreational Drug Use Recreational Drug Use: No Drug Use in Last 12 Months: No Recreational Drug Type: Reports: Methamphetamine Recreational Drug Use Frequency: Not Used In Over 6 Months ED ROS ENT - Review of Systems Review Of Systems: See Below Constitutional: Reports: No Symptoms HEENT: Reports: Other (tooth ache) Respiratory: Reports: No Symptoms Cardiovascular: Reports: No Symptoms Endocrine: Reports: No Symptoms GI/Abdominal: Reports: No Symptoms : Reports: No Symptoms Musculoskeletal: Reports: No Symptoms Skin: Reports: No Symptoms Neurological: Reports: No Symptoms Psychiatric: Reports: No Symptoms Hematologic/Lymphatic: Reports: No Symptoms Immunologic: Reports: No Symptoms ED EXAM, ENT - Physical Exam Exam: See Below Exam Limited By: No Limitations General Appearance: Alert, WD/WN Eye Exam: Bilateral Eye: Normal Inspection Ears: Normal External Exam, Normal Canal Nose: Normal Inspection, Normal Mucousa Mouth/Throat: Normal Inspection, Normal Gums, Other (tender tooth #16) Head: Atraumatic, Normocephalic Neck: Normal Inspection, Supple, Non-Tender Respiratory/Chest: No Respiratory Distress, Lungs Clear, Normal Breath Sounds Cardiovascular: Normal Peripheral Pulses, Regular Rate, Rhythm, No Edema GI/Abdominal: Normal Bowel Sounds, Soft, Non-Tender (Female) Exam: Deferred Rectal (Female) Exam: Deferred Back: Normal Inspection, Full Range of Motion Extremities: Normal Inspection, Normal Range of Motion, Non-Tender, No Pedal Edema Neurological: Alert, Oriented, CN II-XII Intact, Normal Cognition, Normal Gait, No Motor/Sensory Deficits Psychiatric: Normal Affect, Normal Mood Skin: Warm, Dry, Intact, Normal Color, No Rash Lymphatic: No Adenopathy Course - Vital Signs Text/Narrative:: 26 y.o.w.f -smoker-come to the ed because of toothache for several weeks. Pt was on clindamycin 1 week ago without improvement. No trauma to teeth. Pt did not find a dentist. Pt denies any other acute medical issues. PE: Tooth ache #16, no gingivitis Impression: Toothache Tx: Motrin Reexam: Improved Plan: D/C with instructions. Last Recorded V/S: Last Vital Signs Temp 37.1 C 07/26/17 20:25 Pulse 83 07/26/17 20:25 Resp 18 07/26/17 20:25 BP 112/70 07/26/17 20:25 Pulse Ox 100 07/26/17 20:25 - Orders/Labs/Meds Meds: Medications Discontinued Medications Generic Name Dose Route Start Last Admin Trade Name Freq PRN Reason Stop Dose Admin Ibuprofen 600 mg 07/26/17 20:33 07/26/17 20:45 Motrin PO 07/26/17 20:34 600 mg ONETIME ONE Administration Departure - Departure Time of Disposition: 20:35 Disposition: Home, Self-Care 01 Condition: Good Clinical Impression: Toothache - Discharge Information Instructions: Tooth Injuries, [id number] Referrals: López Sanches MD [Primary Care Provider] - Additional Instructions: Please f/u with a dentist, please take Motrin for pain. Please quit tobacco use. Please come back to the ED if your symptoms get worse acutely.
== END 2017-07-26 20:55 | disposition home or self-care (01) ==
LOC: FB.ED 20:17
DX: K08.89 Other specified disorders of teeth and supporting structures (principal); F17.210 Nicotine dependence, cigarettes, uncomplicated; Z88.0 Allergy status to penicillin
CPT/HCPCS: 99282; A9270

== ENCOUNTER 2017-11-05 20:29 | Emergency (ER) | payer SELFPAY ==
[2017-11-05] MEDS ORDERED: Ketorolac 60 MG/2 ML SDV IM ONE (20:41)
--- NOTE | 2017-11-05 20:43 | EDM.PDOC ---
ED HPI GENERAL MEDICAL PROBLEM - General Chief Complaint: Back Pain or Injury Stated Complaint: BACK PAIN Time Seen by Provider: 11/05/17 20:29 Source of Information: Reports: Patient History Limitations: Reports: No Limitations - History of Present Illness INITIAL COMMENTS - FREE TEXT/NARRATIVE: 27 y.o.w.f -non- came to the ed with her SO due to gen back spasm, no trauma. Pt has the spasm for a few weeks. She has mild r flank discomfort, no dysuria. No N/V/D or any other acute medical issues. BP 116/63 RR 20 Temp 36.4 pulse ox 100% on RA Onset Date: 10/22/17 Onset Time: 08:00 Duration: Week(s):, Intermittent Location: Reports: Back Quality: Reports: Ache, Burning, Dull, Stabbing, Throbbing Severity: Moderate Improves with: Reports: Rest Worsens with: Reports: Movement Context: Reports: Other (spontaneous) Associated Symptoms: Reports: Other (minor right flank pain) Treatments QUALITY CHECKER: Reports: NSAIDS Lower Back Pain Score (Numeric/FACES): 9 - Related Data Allergies Allergy/AdvReac Type Severity Reaction Status Date / Time penicillin V Allergy Swelling Verified 07/26/17 20:41 bee Allergy Swelling Uncoded 11/05/17 20:40 Home Meds: Home Meds Ibuprofen [Motrin] 600 mg PO Q6H PRN 06/17/17 [History] Ciprofloxacin HCl [Cipro] 500 mg PO BID #20 tablet 11/05/17 [Rx] Orphenadrine [Norflex] 100 mg PO BID PRN #20 tab.er 11/05/17 [Rx] Past Medical History Other HEENT History: eyelid surgery as a baby Cardiovascular History: Reports: Heart Murmur 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: , Other (See Below) Other OB/BYN History: ovarian cystectomy left Musculoskeletal History: Reports: Arthritis, Other (See Below) Other Musculoskeletal History: 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 Neurological History: Reports: Migraines Psychiatric History: Reports: ADHD, Addiction - Infectious Disease History Infectious Disease History: Reports: Chicken Pox - Past Surgical History HEENT Surgical History: Reports: Eye Surgery, Oral Surgery Respiratory Surgical History: Reports: None GI Surgical History: Reports: Appendectomy Social & Family History - Family History Family Medical History: Noncontributory Endocrine/Metabolic: Reports: Diabetes, type II - Tobacco Use Smoking Status *Q: Current Every Day Smoker Years of Tobacco use: 10 Packs/Tins Daily: 1 Used Tobacco, but Quit: No Second Hand Smoke Exposure: Yes - Caffeine Use Caffeine Use: Reports: Coffee, Energy Drinks, Soda Other Caffeine Use: occas - Recreational Drug Use Recreational Drug Use: No Drug Use in Last 12 Months: No Recreational Drug Type: Reports: Methamphetamine Recreational Drug Use Frequency: Not Used In Over 6 Months ED ROS GENERAL - Review of Systems Review Of Systems: See Below Constitutional: Reports: No Symptoms HEENT: Reports: No Symptoms Respiratory: Reports: No Symptoms Cardiovascular: Reports: No Symptoms Endocrine: Reports: No Symptoms GI/Abdominal: Reports: No Symptoms : Reports: No Symptoms Musculoskeletal: Reports: Back Pain Skin: Reports: No Symptoms Neurological: Reports: No Symptoms Psychiatric: Reports: No Symptoms Hematologic/Lymphatic: Reports: No Symptoms Immunologic: Reports: No Symptoms ED EXAM,LOWER BACK PAIN/INJURY - Physical Exam Exam: See Below Exam Limited By: No Limitations General Appearance: Alert, WD/WN, Mild Distress, Thin Eye Exam: Bilateral Eye: Normal Inspection Ears: Normal External Exam Nose: Normal Inspection Throat/Mouth: Normal Inspection Head: Atraumatic, Normocephalic Neck: Normal Inspection, Supple, Non-Tender, Full Range of Motion Respiratory/Chest: No Respiratory Distress, Lungs Clear, Normal Breath Sounds Cardiovascular: Normal Peripheral Pulses, Regular Rate, Rhythm, No Edema GI/Abdominal: Normal Bowel Sounds, Soft, Non-Tender, No Organomegaly, No Distention (Female) Exam: Deferred Rectal (Female) Exam: Deferred Back Exam: Normal Inspection, Muscle Spasm Extremities: Normal Inspection, Normal Range of Motion, Non-Tender Neurological: Alert, Normal Mood/Affect, Normal Dorsiflexion, CN II-XII Intact Psychiatric: Normal Affect, Normal Mood Skin Exam: Warm, Dry, Intact, Normal Color, No Rash Lymphatic: No Adenopathy Course - Vital Signs Text/Narrative:: 27 y.o.w.f -non- came to the ed with her SO due to gen back spasm, no trauma. Pt has the spasm for a few weeks. She has mild r flank discomfort, no dysuria. No N/V/D or any other acute medical issues. BP 116/63 RR 20 Temp 36.4 pulse ox 100% on RA PE; Gen back spasm Labs: UTI Impression: Back spasm, UTI Tx: Toradol, Norflex, cipro 'Reexam: Improved Plan: D/C with instructions Last Recorded V/S: Last Vital Signs Temp 36.4 C 11/05/17 20:41 Pulse 71 11/05/17 20:41 Resp 20 11/05/17 20:41 BP 116/63 11/05/17 20:41 Pulse Ox 100 11/05/17 20:41 - Orders/Labs/Meds Orders: Active Orders 24 hr Category Date Time Status Cooling Warming Measures [RC] ASDIRECTED Care 11/05/17 20:43 Active Ice Bag [Ice Therapy] [OM.PC] Routine Oth 11/05/17 20:43 Ordered Labs: Laboratory Tests 11/05/17 Range/Units 20:45 Urine Color Yellow (YELLOW) Urine Appearance Clear (CLEAR) Urine pH 5.0 (5.0-6.5) Ur Specific [place] 1.020 (1.010-1.025) Urine Protein Negative (NEGATIVE) mg/dL Urine Glucose (UA) Normal (NEGATIVE) mg/dL Urine Ketones Negative (NEGATIVE) mg/dL Urine Occult Blood Negative (NEGATIVE) Urine Nitrite Negative (NEGATIVE) Urine Bilirubin Negative (NEGATIVE) Urine Urobilinogen Normal (NEGATIVE) mg/dL Ur Leukocyte Esterase Moderate H (NEGATIVE) Urine RBC 0-5 (0) Urine WBC 0-5 (0) Ur Squamous Epith Cells Few H (NS,R,O) Urine Bacteria Few H (NS) Urine Mucus Few H (NS) Meds: Medications Discontinued Medications Generic Name Dose Route Start Last Admin Trade Name Scarlet PRN Reason Stop Dose Admin Ciprofloxacin 500 mg 11/05/17 21:34 11/05/17 21:40 Ciprofloxacin Hcl PO 11/05/17 21:35 500 mg ONETIME ONE Administration Ketorolac Tromethamine 60 mg 11/05/17 20:41 11/05/17 20:52 Toradol IM 11/05/17 20:42 60 mg ONETIME ONE Administration Departure - Departure Time of Disposition: 21:29 Disposition: Home, Self-Care 01 Preliminary Cause of *Q: Respiratory Failure Condition: Good Clinical Impression: Back muscle spasm UTI (urinary tract infection) Qualifiers: Urinary tract infection type: acute pyelonephritis Qualified Code(s): N10 - Acute pyelonephritis - Discharge Information Prescriptions: Ciprofloxacin HCl [Cipro] 500 mg PO BID #20 tablet Orphenadrine [Norflex] 100 mg PO BID PRN #20 tab.er PRN Reason: back spasm Instructions: Urinary Tract Infection, Adult Referrals: López Sanches MD [Primary Care Provider] - Forms: ED Department Discharge Additional Instructions: Please take take Abx and Norflex(muscle relaxer) as recommended, please increase water intake, Motrin for pain, please apply ice to the back, please f/u , come back if your symptoms get worse acutely. - My Orders Last 24 Hours: My Active Orders 11/05/17 20:43 Cooling Warming Measures [RC] ASDIRECTED Ice Bag [Ice Therapy] [OM.PC] Routine - Assessment/Plan Last 24 Hours: My Active Orders 11/05/17 20:43 Cooling Warming Measures [RC] ASDIRECTED Ice Bag [Ice Therapy] [OM.PC] Routine
[2017-11-05] MEDS ORDERED: Ciprofloxacin 500 MG Tab PO ONE (21:34)
[2017-11-05 21:45] VITALS: BP 111/65
== END 2017-11-05 21:40 | disposition home or self-care (01) ==
LOC: FB.ED 20:29
DX: M62.830 Muscle spasm of back (principal); N10 Acute pyelonephritis; F17.210 Nicotine dependence, cigarettes, uncomplicated; Z88.0 Allergy status to penicillin; Z91.030 Bee allergy status
CPT/HCPCS: 81001; 96372; 99284; A9270; J1885

== ENCOUNTER 2018-04-12 22:15 | Emergency (ER) | payer MEDICAID ==
[2018-04-12 22:34] VITALS: BP 120/85
[2018-04-13] MEDS ORDERED: Acetaminophen/HYDROcodone 325-5 MG Tab PO ONE (00:25)
[2018-04-13] MEDS ORDERED: Clindamycin HCl 150 MG Cap PO ONE (00:25)
--- NOTE | 2018-04-13 13:37 | ER ---
DATE SEEN: 04/12/2018 TIME SEEN: The patient was seen at 2220 hours. HISTORY OF PRESENT ILLNESS: This 27-year-old single woman, who smokes less than a pack a day, has two days duration of increasing right retroauricular painful lump. PAST MEDICAL HISTORY: . History of toothaches in the past. ALLERGIES: She is allergic to penicillin and bees. CURRENT MEDICATIONS: None. REVIEW OF SYSTEMS: Negative. The patient is not currently. She denies current dental problems. Denies neck stiffness, shortness of breath, cough, chest pain, irregular heartbeat, or abdominal discomfort. Musculoskeletal, no aches or arthritis or headaches. PHYSICAL EXAMINATION: VITAL SIGNS: Blood pressure 120/85, heart rate 95, respirations 18, oxygen saturation 100%, and temperature 36.9 degrees centigrade. HEENT: The patient is asthenic, has appearance of a smoker with loss of canine tissue. She has marked enlargement, 1 cm raised and 1.5 cm diameter, tender retroauricular lump. Pharynx without abnormality. Inspection of the scalp, no evidence for parietotemporal dermis changes. No sinus pressure tenderness or discomfort, but she notes she has occasional nasal discharge. NECK: Minimal cervical adenopathy. Neck supple. LUNGS: Clear without rales, rhonchi, or wheezes. HEART: S1, S2. No murmur. ABDOMEN: Soft. No guarding. No discomfort. EXTREMITIES: Without abnormality. ASSESSMENT: Right retroauricular adenopathy, etiology indeterminate. PLAN: Treat with clindamycin 150 mg q.i.d., 40 pills prescribed. Tablet of Vicodin given to the patient to take when she gets home. She did not take it in the ED. Also one tablet of clindamycin 150 mg. Follow up with her doctor in a week or earlier if worse. She has been advised that she should have this rechecked in 6 months if it does not resolve. If not resolved, will need either a percutaneous needle biopsy or excision per ENT. DIAGNOSES: 1. Retroauricular adenopathy, etiology indeterminate, possibly most likely infectious etiology. 2. She is a smoker. 3. Single parent. 4. Status post history. /[id number] LONG/AGLILEAL
== END 2018-04-13 00:35 | disposition home or self-care (01) ==
LOC: FB.ED 22:15
DX: R59.9 Enlarged lymph nodes, unspecified (principal); Z88.0 Allergy status to penicillin; Z91.030 Bee allergy status
CPT/HCPCS: 99282; A9270